=== PATIENT | female | born 1960 | race Caucasian/White ===

== ENCOUNTER → 2023-10-25 | Outpatient (CLI) | payer SELFPAY ==
[2023-10-25 13:52] LABS: INR 2.95 (0.85-1.15); PROTHROMBIN TIME 31.9 SEC (9.6-11.6)
== END | disposition home or self-care (01) ==
LOC: LAB 12:44
PROVIDERS: ATTEND Internal Medicine
DX: Z79.01 Long term (current) use of anticoagulants (principal)
CPT/HCPCS: 36415; 85610

== ENCOUNTER → 2023-12-06 | Outpatient (CLI) | payer SELFPAY ==
[2023-12-06 14:36] LABS: INR 2.43 (0.85-1.15); PROTHROMBIN TIME 26.6 SEC (9.6-11.6)
[2023-12-06 14:38] LABS: PARTIAL THROMBOPLASTIN TIME 45.4 SEC (26.3-35.5)
== END | disposition home or self-care (01) ==
LOC: LAB 13:48
PROVIDERS: ATTEND Internal Medicine
DX: Z79.01 Long term (current) use of anticoagulants (principal)
CPT/HCPCS: 36415; 85610; 85730

== ENCOUNTER → 2024-01-20 | Outpatient (CLI) | payer SELFPAY ==
[2024-01-20 16:20] LABS: INR 3.11 (0.85-1.15); PROTHROMBIN TIME 33.7 SEC (9.6-11.6)
== END | disposition home or self-care (01) ==
LOC: LAB 15:13
PROVIDERS: ATTEND Internal Medicine
DX: Z79.01 Long term (current) use of anticoagulants (principal)
CPT/HCPCS: 36415; 85610

== ENCOUNTER → 2024-05-28 | Outpatient (CLI) | payer OTHER | END | disposition home or self-care (01) | LOC: RAH 14:10 | PROVIDERS: ATTEND Internal Medicine Cardiovascular Disease | DX: Z13.6 Encounter for screening for cardiovascular disorders (principal) | CPT/HCPCS: 75571 ==